=== PATIENT | female | born 1960 | race Caucasian/White ===

== ENCOUNTER 2024-07-26 07:39 | Emergency (ER) | payer MEDICAID, SELFPAY ==
[2024-07-26 07:42] VITALS: BP 155/88; PULSE 75; RESP 18; TEMP 36.7; O2SAT 97
--- NOTE | 2024-07-26 07:50 | EDNOTE_ITS ---
ED Abdominal Pain RME/HPI General Chief Complaint: Nausea/Vomiting/Diarrhea Stated complaint: VOMITING, BELCHING AT LEAST A WEEK Time seen by provider: 07/26/24 07:42 Arrival date/time: 07/26/24 07:39 RME / HPI RME / HPI narrative: DR. FIGUEROA MAIN ED EVALUATION: This section includes all my notes and documentations, including HPI, PE, and ED course.? Dinesh Figueroa MD HPI: 64 year old female with past medical history significant for hysterectomy presents to the Emergency Department with complaints of epigastric abdominal pain, nausea and vomiting onset 1 week, severe in the past few hours. Symptoms are moderate. Pain is described as aching. No modifying factors or radiation reported at this time. Patient is a cigarette smoker. No other complaints reported. ROS: All negative except as documented in HPI. Physical Exam: General:? Alert and oriented.? Appears uncomfortable. Eyes:? Conjunctivae and lids clear. ENT:? No nasal congestion.? ? Neck:? Supple. Heart:? RRR. Lungs:? No respiratory distress.? Good air movement.? No rhonchi, wheezing, rales.? Abdomen: Soft with epigastric pain. No rebound or guarding. Legs:? No clubbing, cyanosis, edema. Skin:? Warm and dry.? Neuro:? Alert and oriented X 3.? Before diagnostic tests, Zofran and famotidine and Protonix given for possible GERD/PUD. I reviewed all diagnostic test results. My review of the abdominal CT report is no acute findings. My review of the GB ultrasound report is no acute findings. Blood and urine tests unremarkable. At this point, diagnoses include gallstones. Recommended more outpatient workup. Based on my best medical judgment, made decision no further evaluation or treatment indicated at this time.? Patient understands and agrees to the discharge instructions customized and printed, see below. Discharge instructions from Dr. Figueroa: --Fortunately, there is no very serious condition, such as pneumothorax or heart attack. --No physical exertion for 3 days to help rest the lungs. ?No smoking or exposure to smoking or pets or dust or cold air. --Zithromax to kill the germs causing the bronchitis. --Prednisone to help decrease the swelling in the airways. --Albuterol 2 puffs every 4-6 hours for 24 hours to help keep the airways open. Then as needed for cough or shortness of breath. --See a private doctor next week for recheck, if not completely better. --Seek immediate medical care with worsening or with any concerns. Dinesh Figueroa MD Related Data Previous Rx's ?Medication ?Instructions ?Recorded acetaminophen 300 mg-codeine 30 mg 2 tab PO Q8H PRN pa in #20 tabs 07/26/24 tablet ondansetron 4 mg disintegrating 4 mg PO TID PRN nausea and 07/26/24 tablet vomiting 30 days #10 tabs Allergies Allergy/AdvReac Type Severity Reaction Status Date / Time metformin Allergy Severe Diarrhea Verified 07/26/24 07:45 Past Medical History Social History SMOKING STATUS: Current every day smoker SUBSTANCE USE: does not use ALCOHOL: Never Course Quality Measures none Orders Category Date Time Status CT abdomen pelvis wo con Stat Exams 07/26/24 07:53 Completed US gall bladder Stat Exams 07/26/24 07:53 Taken Amylase Stat Lab 07/26/24 08:18 Completed BMP [Basic Metabolic Panel] Stat Lab 07/26/24 08:18 Completed CBC Stat Lab 07/26/24 08:18 Completed Lipase Stat Lab 07/26/24 08:18 Completed Liver Panel Stat Lab 07/26/24 08:18 Completed Magnesium Stat Lab 07/26/24 08:18 Completed UA, C/S IF [Urinalysis, C/S if Indicated] Stat Lab 07/26/24 09:06 Completed Famotidine [Pepcid] Med 07/26/24 07:53 Discontinued 40 mg PO X1 ONE Ondansetron Odt [Zofran Odt] Med 07/26/24 07:53 Discontinued 4 mg PO X1 ONE Pantoprazole [Protonix] Med 07/26/24 07:53 Discontinued 40 mg PO X1 ONE Vital Signs Vital signs: Vital Signs Temperature 98.1 F 07/26/24 07:42 Pulse Rate 75 07/26/24 07:42 Respiratory Rate 18 07/26/24 07:42 Blood Pressure 155/88 H 07/26/24 07:42 Pulse Oximetry (%) 97 07/26/24 07:42 Oxygen Delivery Method Room Air 07/26/24 07:42 Abdominal Pain MDM MDM Narrative MDM Narrative:: Grace Caro am scribing for and in the presence of Dr. Figueroa. Patient data External records reviewed:: [facility] previous records (Reviewed last ED visit dated 12/12/21, discharged with the following: Distal radius fracture) Clinical information provided by:: patient Social determinants that could affect healthcare access:: other (specify) (cigarette smoker) Patient has the following chronic illnesses:: hysterectomy How is presenting disease/condition affected by chronic disease/condition?: u neffected by Evaluation data The following diagnostics were reviewed and interpreted by me:: lab results and radiology exam(s) Lab and/or radiology exams considered but not ordered:: none Interpretation Summary: Cholelithiasis Medications / Prescriptions Medications or Prescriptions considered but not ordered:: none Medication administrations:: Medication Administration History Discontinued Medications Famotidine (Famotidine 20 Mg Tablet) 40 mg PO X1 ONE Stop: 07/26/24 07:54 Last Admin: 07/26/24 08:19 Dose: 40 mg Documented By: OA Ondansetron HCl (Ondansetron Odt 4 Mg Tabrap) 4 mg PO X1 ONE; Protocol Stop: 07/26/24 07:54 Last Admin: 07/26/24 08:20 Dose: 4 mg Documented By: OA Pantoprazole Sodium (Pantoprazole 40 Mg Tablet) 40 mg PO X1 ONE Stop: 07/26/24 07:54 Last Admin: 07/26/24 08:19 Dose: 40 mg Documented By: OA Zofran and famotidine and Protonix Consultations Consultation(s) initiated? (list below): No Diagnosis Differential diagnosis abdominal pain: abdominal pain, acute appendicitis, calculus of kidney, diverticulitis, small bowel obstruction and other (gastritis, ulcer, biliary colic) Most likely diagnosis given after review of the tests above:: gallstone Admission Indicated Admission indicated?: not indicated Explain why admission is indicated or not indicated:: There was no indication for admission Admission Request Was there a request for admission?: No Disposition Plan Disposition Plan: Discharge Discharge Attestation Discharge Attestation: The patient and all family members were given an opportunity to ask questions and understood the discharge instructions. Discharge instructions specifically effects, indications for sooner follow up or return to the emergency department, and the expected course of current diagnosis. Patient condition: Stable Discharge Plan Plan Patient Disposition: Home w/HOME HEALTH Prescriptions/Referrals Prescriptions/Med Rec: New acetaminophen-codeine 300-30 mg tablet 2 tab PO Q8H MDD 6 PRN (Reason: pain) Qty: 20 0RF ondansetron 4 mg tablet,disintegrating 4 mg PO TID PRN (Reason: nausea and vomiting) 30 Days Qty: 10 0RF Referrals: Rogers Morrison MD [Primary Care Provider] - In 1 week Problem List Clinical Impression: Gallstone Patient/Caregiver Discharge Instructions Discharge Activity: activity as tolerated Education Materials: ED Gallstones with Biliary Colic Additional Instructions: Discharge Instructions from Dr. Figueroa: 1. After evaluation, your symptoms are due to gallstone(s).? You need gallbladder to help digest fatty foods. 2. So to prevent future attacks, avoid all fatty and oily and greasy and buttery and dairy foods.? This usually means take out and fast food restaurants. 3. Zofran for nausea/vomiting.? Tylenol codeine for severe pain.? 4. See a private doctor on 07/27/2024 for recheck and further care. Ask to review all test results and official radiology reports, to make sure you receive all necessary follow-ups and monitoring. Ask for help seeing a general surgeon to discuss elective surgery. 5. Seek immediate medical care with intolerable pain, fever, or with any concerns. Print Language: Slovak Stand Alone Forms: Noemi Award Info., Patient Portal Info Letter
--- NOTE | 2024-07-26 07:53 | XR_ITS ---
Examination: CT abdomen and pelvis without contrast. Coronal 3-D reconstructions. Sagittal 2-D reconstructions. Date and time of exam:July 26, 2024 0902 hours INDICATIONS: Upper abdominal pain today with nausea vomiting diarrhea CTDI: vol (mGy): 17.4 DLP: (mGycm): 1099 Technique: Axial images of the abdomen have been obtained, 3 mm slice thickness Intravenous contrast material has not been administered. Low dose protocols were performed. One or more of the following dose reduction techniques were used; automated exposure control, adjustment of the mA and/or KV according to patient size, use of iterative reconstruction technique. Findings: No focal liver or splenic lesion No gallstones No pancreatic or adrenal mass 2 mm lower pole right renal calculus Aorta normal size No bowel obstruction Normal appendix 6 cm anterior abdominal wall hernia defect No diverticulitis Absent uterus Contracted urinary bladder Prominent osteopenia Advanced degenerative disc disease L3-L4 IMPRESSION: 2 mm nonobstructing right renal calculus
--- NOTE | 2024-07-26 07:53 | XR_ITS ---
Examination: Abdomen sonogram, Limited Date and time of exam: July 26, 2024 0824 hours INDICATIONS: Vomiting epigastric pain beginning one week ago Technique: Real-time gonzalez scale transabdominal sonographic images of the upper abdomen obtained. Findings: 7 mm gallstone Gallbladder wall 0.2 cm Common bile duct 0.5 cm Pancreatic head 2.8 cm Liver 17.7 cm fatty infiltration Normal hepatopedal portal venous flow Patent IVC IMPRESSION: Cholelithiasis, negative for cholecystitis Fatty liver
[2024-07-26 07:59] VITALS: BMI 43.0
[2024-07-26] MEDS: FAMOTIDINE 20 MG TABLET 40 MG PO (08:19)
[2024-07-26] MEDS: PANTOPRAZOLE 40 MG TABLET PO (08:19)
[2024-07-26] MEDS: ONDANSETRON ODT 4 MG TABRAP PO (08:20)
[2024-07-26 08:47] LABS: Basophils % (Auto) 0 % (0-2.5); Eosinophils # (Auto) 0.2 Thou/mm3 (0.0-0.5); Eosinophils % (Auto) 2 % (0-10); Hematocrit 39.4 % (36.0-46.0); Hemoglobin 13.4 g/dL (12.0-16.0); Immature Granulocytes % (Auto) 1 % (0-0); Immature Granulocytes Auto 0.06 Thou/mm3 (0.00-0.00); Lymphocytes # (Auto) 2.7 Thou/mm3 (1.0-4.8); Lymphocytes % (Auto) 25 % (10-50); Mean Corpuscular Hemoglobin 28.5 pg (25.0-35.0); Mean Corpuscular Volume 84 fL (80-100); Monocytes # (Auto) 0.7 Thou/mm3 (0.0-0.8); Monocytes % (Auto) 7 % (0-12); Neutrophils # (Auto) 7.2 Thou/mm3 (1.8-7.7); Neutrophils % (Auto) 66 % (37-80); Nucleated Red Blood Cell % 0 /100 WBC (0); Platelet Count 214 Thou/mm3 (140-440); RDW Standard Deviation 41.9 fL (36.4-46.3); Red Blood Count 4.71 Miln/mm3 (4.00-5.20); White Blood Count 10.8 Thou/mm3 (3.6-11.0)
[2024-07-26 09:15] LABS: Alanine Aminotransferase 16 U/L (10-49); Albumin, Serum 4.6 gm/dL (3.4-4.8); Alkaline Phosphatase 83 U/L (46-116); Amylase 43 U/L (30-118); Anion Gap 8 (7-16); Aspartate Amino Transferase 12 U/L (0-34); BUN/Creatinine Ratio 15 Ratio (12-20); Bilirubin,Direct 0.2 mg/dL (0.0-0.3); Bilirubin,Total 0.5 mg/dL (0.3-1.2); Blood Urea Nitrogen 16 mg/dL (9-23); Calcium 10.8 mg/dL (8.3-10.6); Chloride 100 mMol/L (98-107); Creatinine (Component) 1.1 mg/dL (0.6-1.3); Estimated Creatinine Clearance 70.3 mL/min (>60); Glucose 124 mg/dL (74-106); Lipase 42 U/L (12-53); Magnesium 1.6 mg/dL (1.6-2.6); Osmolality,Calculated 272 (275-295); Potassium 3.9 mMol/L (3.4-5.1); Sodium 135 mMol/L (136-145); Total Protein 7.4 gm/dL (5.7-8.2); eGFR 57 See Note
[2024-07-26 09:16] LABS: Collection Type, Urine Clean Catch
[2024-07-26 09:26] LABS: Bacteria,Urine Rare; Bilirubin,Urine Negative (Negative); Blood,Urine Negative (Negative); Clarity,Urine Clear (Clear/Hazy); Color,Urine Lt-Yellow (Lt Yel-Yel); Culture Indicated,Urine Not Indicated; Glucose, Urine 4+ (Negative); Ketones,Urine Negative (Negative); Leukocyte Esterase,Urine Negative (Negative); Nitrite,Urine Negative (Negative); PH,Urine 6.5 (5.0-7.0); Protein,Urine Negative (Neg - Trace); RBC,Urine 5 /hpf (0-3); Specific Gravity,Urine 1.016 (1.001-1.035); Squamous Epithelial Cell,Urine 7 /hpf (0-5); Urobilinogen,Urine Negative mg/dL (0.0-1.0); WBC,Urine 5 /hpf (0-5)
== END 2024-07-26 10:55 | disposition home health service (06) ==
PROVIDERS: Emergency Provider Emergency Medicine; PCP Family Medicine
DX: K80.20 Calculus of gallbladder without cholecystitis without obstruction (principal); R10.10 Upper abdominal pain, unspecified; R19.7 Diarrhea, unspecified
CPT/HCPCS: 36415; 74176; 76705; 80048; 80076; 81001; 82150; 83690; 83735; 85025; 99284; Q0162; A9270

== ENCOUNTER 2024-10-06 05:45 | Day surgery (SDC) | payer MEDICAID, SELFPAY ==
--- NOTE | 2024-10-05 06:10 | EKG_ITS ---
[facility] Test Date: 2024-10-05 Pat Name: BESSY LIGHT Department: Room: - Gender: Female Building Consultant: JUAN FRANCISCO : 1960 Requested By: James Valles Order Number: [id number] Reading MD: James Valles Measurements Intervals [place] Rate: 72 P: 128 ME: 190 QRS: 211 QRSD: 77 T: 190 QT: 406 QTc: 445 Interpretive Statements SINUS RHYTHM POSSIBLE RIGHT VENTRICULAR HYPERTROPHY [SOME/ALL OF: PROMINENT R IN V1, LATE TRANSITION, RAD, HARIS, SSS] INFERIOR MYOCARDIAL INFARCTION , OF INDETERMINATE AGE [40+ ms Q WAVE AND/OR ST/T ABNORMALITY IN II/aVF] ANTEROLATERAL MYOCARDIAL INFARCTION , OF INDETERMINATE AGE [40+ ms Q WAVE IN I/aVL/V3-V6] No previous ECG available for comparison /store/S0/[id number].pdf
[2024-10-05 07:48] VITALS: BMI 44.5
[2024-10-05 09:37] LABS: Basophils # (Auto) 0.1 Thou/mm3 (0.0-0.2); Basophils % (Auto) 1 % (0-2.5); Eosinophils # (Auto) 0.2 Thou/mm3 (0.0-0.5); Eosinophils % (Auto) 2 % (0-10); Hematocrit 38.5 % (36.0-46.0); Hemoglobin 12.9 g/dL (12.0-16.0); Immature Granulocytes % (Auto) 1 % (0-0); Immature Granulocytes Auto 0.11 Thou/mm3 (0.00-0.00); Lymphocytes # (Auto) 2.4 Thou/mm3 (1.0-4.8); Lymphocytes % (Auto) 23 % (10-50); Mean Corpuscular HGB Conc 33.5 g/dl (31.0-37.0); Mean Corpuscular Hemoglobin 28.9 pg (25.0-35.0); Mean Corpuscular Volume 86 fL (80-100); Monocytes # (Auto) 0.8 Thou/mm3 (0.0-0.8); Monocytes % (Auto) 7 % (0-12); Neutrophils # (Auto) 6.8 Thou/mm3 (1.8-7.7); Neutrophils % (Auto) 66 % (37-80); Nucleated Red Blood Cell % 0 /100 WBC (0); Platelet Count 236 Thou/mm3 (140-440); RDW Standard Deviation 46.7 fL (36.4-46.3); Red Blood Count 4.47 Miln/mm3 (4.00-5.20); White Blood Count 10.3 Thou/mm3 (3.6-11.0)
[2024-10-05 09:43] LABS: Prothrombin Time 10.5 Seconds (9.0-12.2)
[2024-10-05 09:51] LABS: Alanine Aminotransferase 14 U/L (10-49); Albumin, Serum 4.4 gm/dL (3.4-4.8); Albumin/Globulin Ratio 1.6 (1.2-2.2); Alkaline Phosphatase 91 U/L (46-116); Anion Gap 9 (7-16); Aspartate Amino Transferase 12 U/L (0-34); BUN/Creatinine Ratio 13 Ratio (12-20); Bilirubin,Total 0.5 mg/dL (0.3-1.2); Blood Urea Nitrogen 22 mg/dL (9-23); Calcium 8.9 mg/dL (8.3-10.6); Calcium (Corrected) 8.9 mg/dL (8.5-10.1); Carbon Dioxide 24.3 mMol/L (20.0-31.0); Chloride 101 mMol/L (98-107); Creatinine (Component) 1.7 mg/dL (0.6-1.3); Estimated Creatinine Clearance 46.4 mL/min (>60); Globulin 2.8 gm/dL (2.3-3.5); Glucose 164 mg/dL (74-106); Osmolality,Calculated 275 (275-295); Potassium 4.3 mMol/L (3.4-5.1); Sodium 134 mMol/L (136-145); Total Protein 7.2 gm/dL (5.7-8.2); eGFR 34 See Note
[2024-10-06] VITALS (8 sets, daily range): BP systolic 102–120; BP diastolic 59–81; PULSE 64–70; RESP 12–20; TEMP 36.2–36.4; O2SAT 96–100; BMI 44.9
[2024-10-06] MEDS: RINGERS LACTATED 1000 ML 1,000 ML 20 ML IV (07:09)
[2024-10-06] MEDS: ONDANSETRON INJ 2 MG/ML INJ 2 ML 4 MG IV (07:47)
--- NOTE | 2024-10-06 08:46 | PD.SUROPNT ---
Date of Procedure 10/06/24 Pre Op Diagnosis Symptomatic cholelithiasis Post Op Diagnosis Cholelithiasis with cholecystitis Fatty liver Procedure Laparoscopic cholecystectomy Findings Moderately distended gallbladder with gallstones and chronic cholecystitis. The liver was noted to be mildly fatty in appearance Procedure Description Patient was brought into the operating room in supine position. After administration of general endotracheal anesthesia abdomen was prepped and draped in standard surgical manner. A Veress needle was inserted through the umbilicus and pneumoperitoneum was obtained up to 15 mmHg. The Veress needle was then removed, a 5 mm supraumbilical incision was made and the 5mm trocar was inserted. Laparoscopic camera was placed. Under direct visualization a laparoscopic camera a 10 mm trocar was placed in subxiphoid and two 5 mm trocars placed in right upper quadrant. Liver appeared to be mildly fatty in appearance. The gallbladder was identified and was noted to be moderately distended with gallstones and chronic cholecystitis. It was retracted cephalad and laterally. Dissection started near the infundibulum of gallbladder where cystic duct and gallbladder junction clearly identified. The cystic duct was circumferentially dissected off the peritoneum and surrounding inflammatory tissue. The critical view of safety was clearly demonstrated. Cystic duct was then divided between 2 endoclips proximally and one distally. The cystic artery was similarly dissected and divided. The gallbladder was then from the liver bed using electrocautery. The gallbladder was then placed inside an Endo Catch and removed from the abdomen utilizing subxiphoid trocar site. The area was copiously and thoroughly washed and irrigated, all the fluid was suctioned and the suction fluid returned clear. Hemostasis achieved using electrocautery. Endoclips noted be in place and intact without any bleeding or any leakage. Hemostasis was adequate and satisfactory. The subxiphoid trocar sites fascial defect was closed with 0 Vicryl using Endo Closure device. Instruments and trocars removed, pneumoperitoneum was evacuated and the incisions closed with 4-0 Monocryl in subcuticular fashion. Instrument needle and sponge counts were all reported to be correct X2. Patient tolerated the procedure well, was extubated, breathing spontaneously and without difficulty and was transferred to postanesthesia care in stable condition. Anesthesia GETA and local Pathology / specimen Other (Gallbladder and contents) Estimated Blood Loss 10 Condition Stable Disposition PACU Surgeon James Valles MD Surgical Staff Operation Date: 10/06/24 08:00 Case Staff Anesthesiologist: Tj Nascimento
--- NOTE | 2024-10-06 08:47 | SUR.PHASEI ---
0847: Pt. AAOx4, vitals stable, breathing unlabored, no complaint of pain or nausea, x4 dermabond sites to ABD CDI, no active bleed noted, report received from Sonja DESIR and MD Nascimento.
--- NOTE | 2024-10-06 09:45 | SUR.PHASEII ---
0945:Pt. AAOx4, breathing unlabored, no complaint of pain or nausea, x4 dermabond sites to ABD CDI, no active bleed noted, pt. tolerated sips of water well, pt. ambulated to wheelchair with steady gait and no assist, no complications. Gave discharge instructions to the pt. and her ride, both verbalized understanding and had no further questions. Pt. left with all personal belongings.
== END 2024-10-06 09:45 | disposition home or self-care (01) ==
PROVIDERS: PCP Family Medicine; Referring Provider Surgery; Visit Provider Surgery
PROC: 0FT44ZZ Resection of Gallbladder, Percutaneous Endoscopic Approach (ICD-10-PCS; CPT 47562; principal; 2024-10-06 08:00)
DX: K80.10 Calculus of gallbladder with chronic cholecystitis without obstruction (principal); K76.0 Fatty (change of) liver, not elsewhere classified; Z01.810 Encounter for preprocedural cardiovascular examination
CPT/HCPCS: 47562; 36415; 80053; 85025; 85610; 93005; A4217; A4649; J0694; J1100; J1885; J2250; J2405; J2704; J3010; J3490; J7120